=== PATIENT | male | born 1935 | race Caucasian/White ===

== ENCOUNTER 2017-04-26 12:17 | Inpatient (IN) | payer BC ==
[~2017-04-26] VITALS: Ht 180.3 cm; Wt 97.4 kg
[~2017-04-26 12:17] MED LIST: ALLEGRA30 MG PO; FLOMAX0.4 MG PO; GLIMEPIRIDE2 MG PO; LO-DOSE ASPIRIN81 M1 PO; LOSARTAN POTAS100 MG PO; MULTIVITAMIN1 EAC2 PO; OMEGA 3-6-91200 MG PO; PERCOCET 5/31 TABLET PO; SIMCOR 1,000-21 EACH PO; ZOFRAN4 MG PO
[2017-04-26 13:55] LABS: HEMATOCRIT 44.8 % (38.0-50.0); MCH 32.5 PG (29.0-34.0); MCHC 34.8 G/DL (30.0-36.0); MCV 93.3 FL (86-99); MEAN PLAT.VOLUME 10.2 uM^3 (9.0-12.4); PLATELET COUNT 154 K/uL (156-360); RBC DIS.WIDTH-CV 12.4 % (11.8-14.6); RBC DIS.WIDTH-SD 42.8 % (39-53); WHITE BLOOD COUNT 5.4 K/uL (4.1-10.2)
[2017-04-26] MEDS ORDERED: FLONASE ALLERG9.9 ML BOTH NARES (13:55)
[2017-04-26] MEDS ORDERED: PULMICORT FLEX90 MCG IH (13:55)
[2017-04-26 14:05] LABS: CHLORIDE 109 mEq/L (99-109); POTASSIUM 4.4 mEq/L (3.7-5.4); SODIUM 139 mEq/L (136-147)
[2017-04-26 14:07] LABS: GLUCOSE 140 mg/dL (70-99)
[2017-04-26 14:09] LABS: ANION GAP 9 MEQ/L (2-14)
[2017-04-26 14:11] LABS: GFR ESTIMATE (CALCULATED) > 59 mL/min/
[2017-04-26 14:12] LABS: UREA NITROGEN (BUN) 22 mg/dL (9-23)
[2017-04-26 15:05] LABS: TROP-I INTERPRETATION NEGATIVE; TROPONIN-I < 0.01 ng/mL (0.0-0.30)
[2017-04-26] MEDS ORDERED: ONE-A-DAY ESSE1 EAC1 PO (16:08)
[2017-04-26] MEDS ORDERED: FISH OIL 1,0001 EAC7 PO (16:09)
[2017-04-26] MEDS ORDERED: LOPROX 0.77% CR30 GM TP (16:09)
[2017-04-26] MEDS ORDERED: PULMICORT FLE180 MCG IH (16:09)
[2017-04-26] MEDS ORDERED: SIMVASTATIN20 MG PO (16:09)
[2017-04-26 17:19] VITALS: BP 141/77
[2017-04-26 17:27] LABS: POINT-OF-CARE METER ID UU14162513
[2017-04-26 17:52] LABS: TROP-I INTERPRETATION NEGATIVE; TROPONIN-I < 0.01 ng/mL (0.0-0.30)
[2017-04-26 19:00] VITALS: BP 136/73
[2017-04-26 23:21] LABS: POINT-OF-CARE METER ID UU14162513
[2017-04-26 23:45] VITALS: BP 109/57
[2017-04-26 23:55] LABS: TROP-I INTERPRETATION NEGATIVE; TROPONIN-I < 0.01 ng/mL (0.0-0.30)
[2017-04-27 03:47] VITALS: BP 115/61
[2017-04-27 08:15] VITALS: BP 131/72
[2017-04-27 08:24] LABS: POINT-OF-CARE METER ID UU14162513
[2017-04-27 09:34] LABS: INTER. NORMALIZED RATIO 1.1; PROTHROMBIN TIME 11.4 (9.2-11.2); PTT 27.8 (25-32)
[2017-04-27 12:03] VITALS: BP 120/75
[2017-04-27 17:10] VITALS: BP 143/84
[2017-04-27 17:41] VITALS: BP 143/84
[2017-04-27 18:06] LABS: POINT-OF-CARE METER ID UU13113698
[2017-04-27 19:47] VITALS: BP 109/72
[2017-04-28 00:21] VITALS: BP 148/69
[2017-04-28 04:39] VITALS: BP 109/63
[2017-04-28 07:43] VITALS: BP 162/87
[2017-04-28 08:24] LABS: POINT-OF-CARE METER ID UU14174216; POINT-OF-CARE USER ID ENVKC36
[2017-04-28] MEDS ORDERED: CLOPIDOGREL75 MG PO (11:26)
== END 2017-04-28 13:20 | disposition home or self-care (01) | DRG 247 ==
LOC: EME 12:17 → EDOF 16:17 → 5WEST 16:17 → EDOF 16:17 → 5WEST 17:04 → 4EAST 04-27 12:58 → 5WEST 04-27 12:58 → 4EAST 04-27 17:03
PROVIDERS: Hospitalist; Internal Medicine
DX: I25.110 Atherosclerotic heart disease of native coronary artery with unstable angina pectoris (principal); Q24.5 Malformation of coronary vessels; E11.9 Type 2 diabetes mellitus without complications; I34.1 Nonrheumatic mitral (valve) prolapse; D69.6 Thrombocytopenia, unspecified; E78.5 Hyperlipidemia, unspecified; I10 Essential (primary) hypertension; I49.3 Ventricular premature depolarization; J45.909 Unspecified asthma, uncomplicated; Z68.34 Body mass index [BMI] 34.0-34.9, adult; E66.9 Obesity, unspecified; Z82.49 Family history of ischemic heart disease and other diseases of the circulatory system; Z87.891 Personal history of nicotine dependence
CPT/HCPCS: 71020; 80048; 82948; 84484; 85027; 85347; 85610; 85730; 93005; 94640; 94640 76; 99281; 99285; C1725; C1750; C1769; C1874; C1887; G0378; J1644; J1650; J1815; J2250; J3010; J3246; J7030; S0028